=== PATIENT | male | born 1950 | race Caucasian/White ===

== ENCOUNTER 2017-09-04 22:59 | Emergency (ER) | payer BC ==
[~2017-09-04] VITALS: Ht 185.4 cm; Wt 112.5 kg
[~2017-09-04 22:59] MED LIST: AZO1 EACH MISC; CARVEDILOL25 MG PO; CIPRO500 MG PO; DICLOFENAC SODI75 MG PO; FLAGYL500 MG PO; HYDROCODON-ACE1 EAC8 PO; METFORMIN HCL500 M1 PO; METHADONE HCL10 MG PO; NORCO 5-325 TA1 EACH PO; ONDANSETRON ODT8 MG PO; PERCOCET 5-3251 EACH PO; PRADAXA150 MG PO; PROAIR HFA8.5 GM INH; PYRIDIUM100 MG PO; PYRIDIUM200 MG PO; ZOFRAN4 MG PO
[2017-09-04] MEDS ORDERED: FINASTERIDE5 MG PO (23:09)
[2017-09-05] MEDS ORDERED: TRAMADOL HCL50 MG PO (00:50)
== END 2017-09-05 01:10 | disposition home or self-care (01) ==
LOC: ED 22:59
DX: R10.9 Unspecified abdominal pain (principal); I10 Essential (primary) hypertension; Z98.890 Other specified postprocedural states; Z87.442 Personal history of urinary calculi; Z79.4 Long term (current) use of insulin; Z88.8 Allergy status to other drugs, medicaments and biological substances
CPT/HCPCS: 74176; 80053; 81001; 85025; 96374; 96375; 99284; J1170; J1885; J2405

== ENCOUNTER 2018-02-22 20:03 | Emergency (ER) | payer BC ==
[~2018-02-22] VITALS: Ht 185.4 cm; Wt 111.1 kg
[~2018-02-22 20:03] MED LIST changes: +FINASTERIDE5 MG PO; +TRAMADOL HCL50 MG PO
[2018-02-22] MEDS ORDERED: PERCOCET 5-3251 EACH PO (23:04)
== END 2018-02-22 23:18 | disposition home or self-care (01) ==
LOC: ED 20:03
DX: N23 Unspecified renal colic (principal); I10 Essential (primary) hypertension; I48.91 Unspecified atrial fibrillation; Z87.442 Personal history of urinary calculi; Z88.8 Allergy status to other drugs, medicaments and biological substances; Z79.899 Other long term (current) drug therapy
CPT/HCPCS: 80053; 81001; 85025; 96361; 96374; 96375; 96376; 99283; J1885; J2270; J2405; J7030

== ENCOUNTER 2018-04-17 04:07 | Emergency (ER) | payer BC ==
[~2018-04-17] VITALS: Ht 185.4 cm; Wt 111.1 kg
[2018-04-17] MEDS ORDERED: PERCOCET 5-3251 EACH PO (08:01)
--- NOTE | 2018-04-17 11:34 | EKG ---
[facility] [address] [place] [address] Signed Sinus rhythm with premature atrial complexes Nonspecific T wave abnormality Abnormal ECG No previous ECGs available Confirmed by VY FARR MD ([id number]) on 04/17/2018 11:34:16 AM Electronically Signed By: VY FARR MD 04/17/18 1134 PATIENT NAME: YULIYA VENTURA Electrocardiogram DATE OF : 52 PHYSICIAN: VY FARR MD REPORT #: [id number] REPORT IS CONFIDENTIAL AND NOT TO BE RELEASED WITHOUT AUTHORIZATION
== END 2018-04-17 08:05 | disposition home or self-care (01) ==
LOC: ED 04:07
DX: R07.9 Chest pain, unspecified (principal); I10 Essential (primary) hypertension; I48.91 Unspecified atrial fibrillation; Z87.442 Personal history of urinary calculi; Z88.8 Allergy status to other drugs, medicaments and biological substances; Z79.899 Other long term (current) drug therapy
CPT/HCPCS: 71045; 71260; 80053; 84484; 85025; 85379; 85610; 85730; 93005; 93010; 96374; 96375; 99284; J1170; J2405; Q9967